=== PATIENT | female | born 1985 | race Caucasian/White ===

== ENCOUNTER 2016-09-26 17:04 | Observation (INO) | payer BC ==
--- NOTE | 2016-09-26 17:47 | C.PDOC ---
History Of Present Illness <Filippo Knight DO - Last Filed: 09/26/16 21:16> <Tessa Max - Last Filed: 09/28/16 09:17> 31-year-old female, presents to the emergency department with complaints of new onset left-flank/L pelvic pain since this afternoon. Initially, pain was in left flank, but is now radiating to left groin. Denies Hx of kidney stones. Denies hematuria, urgency, or any other associated symptoms. Patient w/ (+)IUP, 07/2016, that is associated with nausea and non-bloody/non-bilious vomiting. No vaginal bleeding. NEW ONSET L FLANK/L PELVIC PAIN SINCE THIS AFTERNOON. INITIAL ONSET L FLANK NOW RADIATION L GROIN. DENIES HO KIDNEY STONE. DENIES HEMATURIA, URGENCY. +PREG + IUP 07/2016 +NV. NO FEVER. NO VB EXAM MOD DIST NONTOXIC ABD +L LQ/PELVIC TEND MOD SOFT NO R/G REMAINDER NEG (MansoorTessa) <Filippo Knight DO - Last Filed: 09/26/16 21:16> <Tessa Max - Last Filed: 09/28/16 09:17> Time Seen by Provider: 09/26/16 17:12 Chief Complaint (Nursing): Abdominal Pain Past Medical History Reviewed: Historical Data, Nursing Documentation, Vital Signs Family History: States: Unknown Family Hx - Social History Hx Alcohol Use: No Hx Substance Use: No - Immunization History Hx Tetanus Toxoid Vaccination: No Hx Influenza Vaccination: No Hx Pneumococcal Vaccination: No <Tessa Max - Last Filed: 09/28/16 09:17> Vital Signs: Last Vital Signs Temp 98.5 F 09/26/16 21:47 Pulse 112 H 09/26/16 21:47 Resp 18 09/26/16 21:47 BP 122/74 09/26/16 21:47 Pulse Ox 98 09/26/16 21:47 Review Of Systems Cardiovascular: Negative for: Chest Pain, Palpitations Respiratory: Negative for: Cough, Shortness of Breath Gastrointestinal: Positive for: Nausea, Vomiting Genitourinary: Positive for: Pelvic Pain Musculoskeletal: Positive for: Back Pain Skin: Negative for: Rash Neurological: Negative for: Weakness, Numbness <Tessa Max - Last Filed: 09/28/16 09:17> Physical Exam - Physical Exam Appears: Non-toxic, No Acute Distress Skin: Warm, Dry, No Rash Head: Atraumatic, Normacephalic Eye(s): bilateral: Normal Inspection, PERRL Nose: Normal Oral Mucosa: Moist Lips: Normal Appearing Neck: Normal ROM Chest: Symmetrical Cardiovascular: Rhythm Regular Respiratory: Normal Breath Sounds, No Accessory Muscle Use Gastrointestinal/Abdominal: No Guarding, No Rebound, Other (+LLQ/PELVIC TEND MOD SOFT NO R/G) Extremity: Normal ROM Neurological/Psych: Oriented x3, Normal Speech <Tessa Max - Last Filed: 09/28/16 09:17> ED Course And Treatment - Laboratory Results Result Diagrams: 09/26/16 18:00 09/26/16 18:00 <Filippo Knight DO - Last Filed: 09/26/16 21:16> - Laboratory Results Result Diagrams: 09/26/16 18:00 09/26/16 18:00 O2 Sat by Pulse Oximetry: 100 <Tessa Max - Last Filed: 09/28/16 09:17> Progress - Continuity of Care Discussed pt. case with rewards consultant/specialty: Obstetrics/Gynecology (Spoke to Dr. Becerra to review the case and recommends Keflex 500 mg q8h for one week. Strain urine and follow up with PMD.) <Filippo Knight DO - Last Filed: 09/26/16 21:16> - Data Reviewed Data Reviewed: Lab, Diagnostic imaging, Old records <Tessa Max - Last Filed: 09/28/16 09:17> ED OBSERVATION <Filippo Knight DO - Last Filed: 09/26/16 21:16> Date of observation admission: 09/26/16 Time of observation admission: 17:45 <Tessa Max - Last Filed: 09/28/16 09:17> - Observation admission statement Patient is being placed in observation because:: ABD PAIN, PREG (Tessa Max) - Goals of Observation Goals of observation are:: NEG ACUTE ABD, SX IMPROVE (Tessa Max) - Progress Note Progress Note: 09/26/16 17:48 PT OFFERED MORPHINE, TYLENOL. RISKS BENEFITS DISCUSSED, DOES NOT WISH MORPHINE @ THIS TIME. 09/26/16 19:00 S/O DR KNIGHT FU US, DISPO (Tessa Max) Disposition <Filippo Knight DO - Last Filed: 09/26/16 21:16> Counseled Patient/Family Regarding: Diagnosis - Disposition Disposition Time: 21:45 <Tessa Max - Last Filed: 09/28/16 09:17> - Disposition Disposition: HOME/ ROUTINE Condition: GOOD - Clinical Impression Clinical Impression: Kidney Stones How to strain your urine urinary tarct infecti <Ajaymekhianika Filippo - Last Filed: 09/26/16 21:16> - Scribe Statement The provider has reviewed the documentation as recorded by the Scribe <MansoorTessa - Last Filed: 09/28/16 09:17> - Scribe Statement Padmini Aburto All medical record entries made by the Scribe were at my direction and personally dictated by me. I have reviewed the chart and agree that the record accurately reflects my personal performance of the history, physical exam, medical decision making, and the department course for this patient. I have also personally directed, reviewed, and agree with the discharge instructions and disposition. (Tessa Max)
[2016-09-26] MEDS ORDERED: Sodium Chloride 0.9% 1,000 ML IV ONE (17:48)
[2016-09-26 18:05] LABS: BASO % 0.4 % (0.0-2.0); EOS % 0.4 % (0.0-4.0); HEMATOCRIT 35.6 % (34.0-47.0); LYMPH # 2.6 K/uL (1.0-4.3); MEAN CELL VOLUME 77.4 fL (81.0-99.0); MEAN CORPUSCULAR HEMOGLOBIN 24.4 pg (27.0-31.0); MEAN CORPUSCULAR HGB CONC 31.5 g/dL (33.0-37.0); MEAN PLATELET VOLUME 9.5 fL (7.2-11.7); MONO # 0.7 K/uL (0.0-0.8); MONO % 6.3 % (0.0-10.0); RED CELL DISTRIBUTION WIDTH 15.9 % (11.5-14.5); WHITE BLOOD COUNT 11.3 K/uL (4.8-10.8)
[2016-09-26 18:15] LABS: CHLORIDE 102 mmol/L (98-107)
[2016-09-26 18:16] LABS: POTASSIUM 4.1 mmol/L (3.6-5.2); SODIUM 136 mmol/L (132-148)
[2016-09-26 18:18] LABS: GFR AFRICAN-AMERICAN > 60
[2016-09-26 18:19] LABS: BLOOD UREA NITROGEN 6 mg/dL (7-17); CALCIUM 8.9 mg/dl (8.6-10.4); CARBON DIOXIDE 15 mmol/L (22-30); GLUCOSE,RANDOM 94 mg/dL (65-105)
[2016-09-26 20:26] LABS: RBC URINE 11 /hpf (0-3); URINE BACTERIA MANY (<OCC); URINE BILIRUBIN NEGATIVE (NEGATIVE); URINE BLOOD NEGATIVE (NEGATIVE); URINE COLOR Yellow (YELLOW); URINE GLUCOSE (UA) NORMAL (Normal); URINE KETONE 2+ mg/dL (NEGATIVE); URINE LEUKOCYTE ESTERASE NEG Leu/uL (Negative); URINE PROTEIN NEGATIVE (NEGATIVE); URINE UROBILINOGEN NORMAL mg/dL (0.2-1.0); WBC URINE 33 /hpf (0-5)
[2016-09-26 21:49] VITALS: BP 122/74; PULSE 112; RESP 18; TEMP 98.5
--- NOTE | 2016-09-27 08:35 | US ---
Renal ultrasound History: Left flank pain. Comparison: None available. Technique: Real-time sonography was performed through the kidneys. Findings: Right kidney: 12.4 x 4.9 x 5.8 centimeters. No calculi or hydronephrosis. Normal echogenicity. Normal flow. Left Kidney: 13.5 x 6.2 x 5.5 centimeters. Normal echogenicity. Normal flow. Mild hydronephrosis. 6.7 millimeter hyperechoic non shadowing focus in the upper pole of the left kidney. Superior compound calyx measures 12 millimeters. Urinary bladder is incompletely distended. Color Doppler jets were performed. Visualized aorta grossly preserved. Impression: Mild left hydronephrosis with a probable left urolith. Degree of hydronephrosis is out of proportion for benign gestational hydronephrosis. Level and cause not further delineated. Clinical correlation. These findings were preliminarily reported at 7:34 p.m. on 09/26/[address] Keren Arora from [facility].
--- NOTE | 2016-09-27 08:40 | US ---
Pelvic ultrasound History: . Pelvic pain. Comparison: None available. Technique: Real-time sonography was performed through the pelvis utilizing transabdominal technique. Findings: Uterus: 14.3 x 8.1 x 10.4 centimeters. Anteverted. Cervix measures 2.9 centimeters. Intrauterine . Intrauterine gestational sac noted. [place]-rump length measures 6.7 centimeters corresponding to a gestational age of 13 weeks and 0 days. heart rate of 141 beats per minute. No free fluid in the pelvic cul-de-sac. Right ovary: Not well visualized. Left ovary: 2.6 x 1.7 x 2.0 centimeters. Normal flow. LMP by dates of 11 weeks and 1 day with size date discrepancy by ultrasound of 13 weeks and 0 days. Estimated date of delivery of 04/03/2017. LMP of 07/10/2016. Posterior placental position. Impression: Viable intrauterine corresponding to a gestational age sonographically of 13 weeks and 0 days with a heart rate of 141 beats per minute. Right ovary not well visualized. Limited 1st trimester ultrasound for viability purposes only. Continued interval followup with serial ultrasound, serial HCG levels, and gynecological consultation would be helpful if clinically indicated. These findings were preliminarily reported by Dr. Keren Arora at 7:37 p.m. on 09/26/2016 from [employer].
[2016-09-28 09:18] VITALS: O2SAT 100
[2016-10-01] MEDS ORDERED: Propofol 10 mg/ml 0 ML ONE (08:45)
== END 2016-09-26 21:15 | disposition home or self-care (01) ==
LOC: C.ER 17:04 → C.9OBSV 17:45
PROVIDERS: ADMIT Emergency Medicine; ATTEND Emergency Medicine
DX: N13.2 Hydronephrosis with renal and ureteral calculous obstruction (principal); Z33.1 Pregnant state, incidental
CPT/HCPCS: 36415; 76770; 76801; 80048; 81001; 84702; 85025; 86850; 86870; 86900; 87086; 96374; 99283; G0378; J2270; J2405

== ENCOUNTER 2017-01-02 09:30 | Emergency (ER) | payer BC ==
--- NOTE | 2017-01-02 09:45 | C.PDOC ---
History Of Present Illness 31 y/o female, 28 weeks , , reports LMP 06/09, sent to ED by VIDEO TAPE EDITOR ( Dr. Parekh) for 2nd injection of Rhogam. Patient notes her last Rhogam injection was earlier in the year. Patient states via IVF. Denies fever, chills, abdominal pain, vaginal bleeding, nausea, vomiting, or other complaints. Time Seen by Provider: 01/02/17 09:44 Chief Complaint (Nursing): Medical Clearance History Per: Patient History/Exam Limitations: no limitations Reports Recently: Treated By A Physician Recent travel outside of the [place]: No Past Medical History Reviewed: Historical Data, Nursing Documentation, Vital Signs Vital Signs: Last Vital Signs Temp 98.4 F 01/02/17 09:35 Pulse 116 H 01/02/17 09:35 Resp 19 01/02/17 09:35 BP 121/80 01/02/17 09:35 Pulse Ox 96 01/02/17 10:49 - Medical History PMH: No Chronic Diseases Family History: States: Unknown Family Hx - Social History Hx Alcohol Use: No Hx Substance Use: No - Immunization History Hx Tetanus Toxoid Vaccination: No Hx Influenza Vaccination: No Hx Pneumococcal Vaccination: No Review Of Systems Except As Marked, All Systems Reviewed And Found Negative. Constitutional: Negative for: Fever, Chills Gastrointestinal: Negative for: Nausea, Vomiting, Abdominal Pain Genitourinary: Negative for: Vaginal Discharge, Vaginal Bleeding Skin: Negative for: Rash Physical Exam - Physical Exam Appears: Non-toxic, No Acute Distress Skin: Warm, Dry Head: Normacephalic Chest: Symmetrical Cardiovascular: Rhythm Regular Respiratory: Normal Breath Sounds, No Rales, No Rhonchi, No Wheezing Gastrointestinal/Abdominal: Soft, No Tenderness, No Guarding, No Rebound, Other (gravid) Back: Normal Inspection Extremity: Normal ROM, Capillary Refill (< 2 sec.) Neurological/Psych: Oriented x3, Normal Speech, Normal Cognition ED Course And Treatment O2 Sat by Pulse Oximetry: 96 (RA) Pulse Ox Interpretation: Normal Medical Decision Making Medical Decision Making: Impression: 31 y/o female sent to ER for Rhogam injection Plan: * Labs * Dr. Parekh called and message left with answering machine. No call back. Progress: Type and screen A Negative. Will give Rhogam. Prescription by Dr. Parekh to give Rhogam. Will have her follow up with Dr. Parekh as scheduled and to return to the ED if she develops abdominal pain, vaginal bleeding or any other concern. Disposition Counseled Patient/Family Regarding: Studies Performed, Diagnosis, Need For Followup - Disposition Referrals: Carloz Parekh MD [Medical Doctor] - Disposition: HOME/ ROUTINE Disposition Time: 12:05 Condition: GOOD Additional Instructions: Ms Martinez, thank you for letting us take care of you today. Your provider was Dr. Cuadra. You were treated for Needs Rhogam Medication. The emergency medical care you received today was directed at your acute symptoms. If you were prescribed any medication, please fill it and take as directed. It may take several days for your symptoms to resolve. Return to the Emergency Department if your symptoms worsen, do not improve, or if you have any other problems. Please contact your doctor or call one of the physicians/clinics you have been referred to that are listed on the Patient Visit Information form that is included in your discharge packet. Bring any paperwork you were given at discharge with you along with any medications you are taking to your follow up visit. Our treatment cannot replace ongoing medical care by a primary care provider (PCP) outside of the emergency department. [facility] care today. If you had an X-Ray or CT scan: A Radiologist will review the ED reading if any change in treatment is needed we will contact you. If you had a blood, urine, or wound culture: It will take several days for the results, if any change in treatment is needed we will contact you. If you had an STI test: It will take 48 hours for the results. Please call after 1 week if you have not heard back. Instructions: Rho(D) Immune Globulin (By injection) Forms: General Discharge Instructions, Work Excuse - POA Present On Arrival: None - Clinical Impression Clinical Impression: Need for rhogam due to Rh negative mother - Scribe Statement The provider has reviewed the documentation as recorded by the Peter Gibbons Provider Attestation: All medical record entries made by the Peter were at my direction and personally dictated by me. I have reviewed the chart and agree that the record accurately reflects my personal performance of the history, physical exam, medical decision making, and the department course for this patient. I have also personally directed, reviewed, and agree with the discharge instructions and disposition.
[2017-01-02 12:48] VITALS: BP 110/75; PULSE 86; RESP 20; TEMP 98.1; O2SAT 100
== END 2017-01-02 12:55 | disposition home or self-care (01) ==
LOC: C.ER 09:30
DX: O36.0130 Maternal care for anti-D [Rh] antibodies, third trimester, not applicable or unspecified (principal); Z3A.28 28 weeks gestation of pregnancy
CPT/HCPCS: 82948; 86850; 86900; 99283; J2792

== ENCOUNTER 2017-02-18 17:50 | Emergency (ER) | payer BC, OTHER ==
[2017-02-18] MEDS ORDERED: Dextrose 5%/Lactated Ringer's 1,000 ML IV SCH (19:15)
[2017-02-18 19:36] LABS: BASO % 0.2 % (0.0-2.0); EOS % 0.1 % (0.0-4.0); HEMATOCRIT 39.6 % (34.0-47.0); LYMPH # 1.2 K/uL (1.0-4.3); LYMPH % 8.6 % (20.0-40.0); MEAN CORPUSCULAR HEMOGLOBIN 26.5 pg (27.0-31.0); MEAN CORPUSCULAR HGB CONC 32.1 g/dL (33.0-37.0); MEAN PLATELET VOLUME 9.6 fL (7.2-11.7); MONO # 0.6 K/uL (0.0-0.8); MONO % 4.5 % (0.0-10.0); RED CELL DISTRIBUTION WIDTH 15.1 % (11.5-14.5); WHITE BLOOD COUNT 13.4 K/uL (4.8-10.8)
[2017-02-18 19:44] LABS: RBC URINE 17 /hpf (0-3); TRANSITIONAL EPITHIAL < 1 /hpf (0-3); URINE BACTERIA MOD (<OCC); URINE BILIRUBIN NEGATIVE (NEGATIVE); URINE COLOR Yellow (YELLOW); URINE GLUCOSE (UA) NORMAL (Normal); URINE KETONE NEGATIVE (NEGATIVE); URINE PROTEIN 1+ mg/dL (NEGATIVE); URINE UROBILINOGEN NORMAL mg/dL (0.2-1.0); WBC URINE 11 /hpf (0-5)
[2017-02-18 19:45] LABS: URINE BLOOD 2+ (NEGATIVE); URINE LEUKOCYTE ESTERASE 1+ Leu/uL (Negative)
[2017-02-18] MEDS ORDERED: ceFAZolin IV 2 gm in Dextrose 2 GM/100 ML BAG IVPB ONE (20:00)
[2017-02-18 20:04] LABS: MEAN CELL VOLUME 82.6 fL (81.0-99.0); PLATELET COUNT 186 K/uL (130-400)
[2017-02-18 20:06] LABS: CHLORIDE 105 mmol/L (98-107); POTASSIUM 4.1 mmol/L (3.6-5.2); SODIUM 141 mmol/L (132-148)
[2017-02-18 20:08] LABS: ALB/GLOB RATIO 1.2 (1.0-2.1); ALKALINE PHOSPHATASE 106 U/L (38-126); AMYLASE 86 U/L (30-110); AST/SGOT 21 U/L (14-36); BILIRUBIN,TOTAL 0.4 mg/dL (0.2-1.3); BLOOD UREA NITROGEN 8 mg/dL (7-17); CARBON DIOXIDE 26 mmol/L (22-30); GFR AFRICAN-AMERICAN > 60; GLUCOSE,RANDOM 54 mg/dL (65-105); TOTAL PROTEIN 6.7 g/dL (6.3-8.3)
[2017-02-18 20:09] LABS: ALT/SGPT 26 U/L (9-52); CALCIUM 9.2 mg/dl (8.6-10.4)
[2017-02-18 20:43] LABS: EOSINOPHIL 1 % (0-4); NEUTROPHIL 78 % (50-75); TOTAL CELLS COUNTED 100
--- NOTE | 2017-02-18 21:30 | OBDCSUM ---
Datetime: 02/18/2017 21:28 Discharged to, Provider: Home Follow up at, Provider: Dr Parekh Follow up at, Provider: Disch Instr Activity: Normal activity Disch Instr Diet: Regular Discharge Time: 02/18/2017 21:28 Follow up in weeks, Provider: 02/23/2017 Follow up in weeks, Provider: Mirna 02/23/17 Disch Referrals: None Discharge Comment, Provider: precautis given feer, chills,nasue, vomiting, cp, sob, bleeding ctx, etc go to er and call doctor follw up as infomred wednesday Discharge Diagnosis Prov Other: nephrolithiasis
--- NOTE | 2017-02-18 21:30 | OBHP ---
Datetime: 02/18/2017 18:47 Admit Comment, IP Provider: 31 y/o @ 34.2wks GA IVF PAM 03/30/17 reports hx of nephro liathis reporting flank left sided pain, sharp, non radiating, 12/28. Pt denie sany dysuira, urgency, frueqency, constipation, hematruria, ctx, lof, vb, feever, chills. Pt reports nasue and vomciitng x 3 since 3pm noon bloody npo bilious Ante: Nephrolithiasis 09/2016, hospitalized [facility] , IVF Pregnacy< GDMA 2 Insulin PMH: Nephrolithiasis PSH: denies OB: P0 [employer]CH[employer]IC: denies hx of abnormla pap, fibroids, ovarian cyst, STI FHX: Dad: DM MEDS: PNV, Asprin, Vitamin D A/P @ 34.2 wks GA IVF with nephrolithiasis -cbc, cmp, ua, urine cx -pain managment: tyenoln , if unimporve morphine -Ancef 2grams IV q z 1 -NPO, IVF -Renal US -BPP -cont toco and efm s/p US pt reevated requesting discharge pt tolerated po challenge blood sugar repeat 121 no pain medication rquired us/lab results reviweed d/c home precauitosn givne: fever, chils, pain, lof, vb, n/v, any symptoms go to nearest ER Rx tyeonol, keflex dw Dr Parekh Pelvic Type - PN: Adequate Extremities - PN: Normal Abdomen - PN: Normal Back - PN: Abnormal Breast - PN: Not Done Lungs - PN: Normal Heart - PN: Normal Thyroid - PN: Normal Neurologic - PN: Normal HEENT - PN: Normal General - PN: Normal FHR - Baseline A Provider: 125 Membranes, Provider: Intact Comments, ACOG Physical Exam: Back: Left Flank pain Gestation - Est Wks by US: 34.2 Vital Signs Provider: Reviewed; Within Normal Limits NICHD Variability Prov Fetus A: Moderate 6-25bpm FHR Category Provider Fetus A: Category I NICHD Decel Fetus A IP Provider: None Dilatation, Provider: 0 Effacement, Provider: 0 Station, Provider: -3 Genitourinary Exam: Normal DTRs - PN: Normal
[2017-02-19 01:47] VITALS: BP 122/72; PULSE 90; RESP 18; TEMP 96.6
--- NOTE | 2017-02-19 08:33 | US ---
Ultrasound biophysical profile Indication: 34 wks suspected nephrolithiasis Technique: Grayscale, color flow, and M-mode sonographic images of the single live intrauterine were obtained. Comparison: 1st trimester ultrasound performed 09/26/16 Findings: There is a single live intrauterine gestation. The fetus is in breech position. The placenta is posterior. There is no evidence of previa. BRITTNI measures approximately 16.7 cm, within normal limits. Estimated weight 2734 g. Cervix length measures approximately 3 cm. M-mode imaging demonstrates a heart rate to be 148.2 beats per min. The study was performed for the purpose of emergent evaluation, and the whole anatomic survey of the fetus was not performed. This should be performed on an outpatient elective basis as clinically warranted. movements 2/2 breathing 2/2 tone 2/2 Amniotic fluid 2/2 Total score impression: 8/8 Fetus has a composite sonographic age of 36 weeks 2 days. This calculation is based on the biparietal diameter, head circumference, abdominal circumference, and femur length. Impression: Biophysical profile of 8 out of 8. Single live intrauterine in breech position with a heart rate of 148.2 beats per min. Preliminary impression was provided by [facility].
--- NOTE | 2017-02-19 08:46 | US ---
PROCEDURE: Ultrasound of the Kidneys HISTORY: flank pain hx of nephrolithiasis, 34 weeks COMPARISON: Renal ultrasound performed 09/26/16 TECHNIQUE: Sonogram of the kidneys. FINDINGS: RIGHT KIDNEY: Measures: 12.8 x 5.3 x 5.3 cm. No obstructing calculus or hydronephrosis identified. LEFT KIDNEY: Measures: 3.3 x 5.6 x 6.6 cm. Moderate hydronephrosis. Obstructing 6 mm calculus, proximal left ureter. 1.1 cm echogenic focus within the mid left kidney, likely nonobstructing calculus. OTHER FINDINGS: None. IMPRESSION: Moderate left hydronephrosis with obstructing 6 mm calculus in the proximal left ureter. 1.1 cm echogenic focus within the mid left kidney, likely nonobstructing calculus. Preliminary impression was provided by [facility].
== END 2017-02-18 21:40 | disposition home or self-care (01) ==
LOC: C.EROB 17:50
DX: O26.893 Other specified pregnancy related conditions, third trimester (principal); N20.0 Calculus of kidney; Z87.442 Personal history of urinary calculi; Z3A.34 34 weeks gestation of pregnancy
CPT/HCPCS: 76770; 76818; 80053; 81001; 82150; 82948; 83690; 85025; 86850; 86870; 86900; 87086; 99283; J7120